=== PATIENT | female | born 1980 | race Caucasian/White ===

== ENCOUNTER 2018-12-30 08:34 | Day surgery (SDC) | payer OTHER ==
[~2018-12-30 08:34] MED LIST: BACITRACIN 50000 UNIT VIAL ONE; CEFAZOLIN SODIUM 1 GM/VIAL ONE; GENTAMICIN SULF 80 MG/2ML INJ ONE; NS 0.9% VIAL 20 ML ONE; Ringers Lactate 1,000 ML IV ONE
[2018-12-30 08:44] LABS: Urine Appearance CLEAR; Urine Bilirubin NEGATIVE (NEG); Urine Blood NEGATIVE (NEG); Urine Color YELLOW; Urine Glucose NEGATIVE (NEG); Urine Microscopic Reflex NO UMIC; Urine Protein NEGATIVE (NEG); Urine Urobilinogen 0.2 mg/dL (0.2-1.0); Urine pH 6.5 (5.0-7.0)
[2018-12-30] MEDS ORDERED: CEFAZOLIN/SWI 1gm 1 GM/10 ML SYR ONE (08:45)
[2018-12-30] MEDS ORDERED: SCOPOLAMINE HYDROBROMIDE PATCH TD ONE (08:45)
[2018-12-30] MEDS ORDERED: Ringers Lactate 1,000 ML IV ONE (08:45)
[2018-12-30] MEDS ORDERED: MIDAZOLAM HCL 2 MG/2 ML INJ ONE (08:55)
[2018-12-30] MEDS ORDERED: dexAMETHasone 10 MG/ML VIAL ONE (08:55)
[2018-12-30] MEDS ORDERED: LIDOCAINE 1% MPF 5 ML VIAL ONE (08:55)
[2018-12-30] MEDS ORDERED: PROPOFOL 200 MG/20 ML VIAL IV ONE (08:55)
[2018-12-30] MEDS ORDERED: ONDANSETRON 4 MG/2 ML VIAL ONE ×2 (08:56→13:00)
[2018-12-30] MEDS ORDERED: VECURONIUM 10 MG/VIAL IV ONE ×2 (08:56→09:04)
[2018-12-30] MEDS ORDERED: FENTANYL CITR 250 MCG/5 ML ONE ×2 (08:56→10:45)
[2018-12-30] MEDS ORDERED: NS 0.9% VIAL 10 ML ONE ×3 (08:56→11:08)
[2018-12-30] MEDS ORDERED: KETOROLAC 30 MG/ML INJ ONE ×2 (08:58→12:42)
--- NOTE | 2018-12-30 09:08 | RAD REPORT ---
EXAM DESCRIPTION: RAD - Chest Pa And Lat (2 Views) - 12/30/2018 8:37 am CLINICAL HISTORY: preop Chest pain. COMPARISON: No comparisons FINDINGS: The lungs are clear. The heart is normal in size. No displaced fractures. IMPRESSION: No acute or concerning finding suspected.
[2018-12-30] MEDS ORDERED: Mastisol Adhesive Liq ONE (10:15)
[2018-12-30] MEDS ORDERED: FENTANYL CITR 100 MCG/2 ML ONE (10:28)
[2018-12-30] MEDS ORDERED: EPHEDRINE SULF 50 MG/ML VIAL ONE (11:08)
--- NOTE | 2018-12-30 12:12 | EKG ---
Test Date: 2018-12-30 Test Time: 08:24:45 [employer] Clippings: SHANDRA MEASUREMENT RESULTS: Intervals: Rate: 61 ND: 122 QRSD: 84 QT: 410 QTc: 412 [place]: P: 32 ND: 122 QRS: 68 T: 42 INTERPRETIVE STATEMENTS: Normal sinus rhythm Normal ECG No previous ECG available for comparison Electronically Signed On 12-30-18 12:10:13 CDT by Sage Maria
[2018-12-30] MEDS ORDERED: GLYCOPYRROLATE 0.2 MG/ML SYR ONE ×2 (12:42→13:59)
[2018-12-30] MEDS ORDERED: NEOSTIGMINE 1 MG/ML -10 ML VIAL ONE (13:00)
[2018-12-30] MEDS: HYDROMORPHONE HCL 2 MG/ML inj ONE ×3 (14:30→14:50)
[2018-12-30] MEDS ORDERED: PROMETHAZINE 25 MG/ML VIAL ONE (14:35)
[2018-12-30 14:55] VITALS: O2SAT 98
[2018-12-30] MEDS ORDERED: CODEINE 30MG/APAP 300MG TAB ONE (16:12)
[2018-12-30] MEDS ORDERED: ONDANSETRON 4 MG (ODT) TAB ONE (16:12)
[2018-12-30 17:47] VITALS: BP 96/55; TEMP 98.3
--- NOTE | 2018-12-31 01:57 | OP ---
Surgeon: Subhash Ott MD Linting Machine Operator: Flaquito. Postoperative Diagnosis: Breast descend. Postoperative Diagnosis: Breast descend. Procedure Performed: Breast lift. Anesthesia: General. Description Of Procedure: After satisfactory general anesthesia, chest was prepped with DuraPrepdr hare sterile drapes applied in the usual manner. 45 template was used on right and left areolas and tra nsverse and curvilinear incisions were made. The intervening skin was de-epithelialized with dermabr ader or EpiCut. Then, flap was elevated cephalad towards the sternum, clavicle, and anterior axillar y line 1.2 cm thick. Cephalad elevation continued and then inferior incision was made. The interven ing skin was then formed into a cone with 2-0 PDS suture. After this was done, the straps were eleva macey from 12 o'clock, 1:30, and 3 o'clock positions and then straps were woven in and out the pectoral is major muscle back to the base of the cone. Pectoralis muscle was then sewn to themselves at the b ase of the cone with 2-0 PDS. This was done for the 12 o'clock and one for the 3 o'clock. Strap was sewn over the sternum at 3 o'clock position with 2-0 Ethibond. A mirror image procedure was done on the left side. The patient then had the wounds stapled shut. She was then sat up for symmetry and returned supine and then the dog ears were cut out medial and lateral with scalpel and electrocautery and then the wound was closed. A 10 KAYLYN was brought out of the axilla closed, sutured in place with 2-0 silk. Wound was closed in layers with 3-0 Vicryl subcu. 3-0 PDS running subcuticular tied in th e vertical meridian of the breast. Left side was done, and then the patient was sat up. Site for ne w nipple-areolar complex was marked out. Tissue was cored out, with a 45 mm template and interrupted 4-0 PDS, followed by 4-0 PDS in running and subcuticular. Dressings consisted of tincture of benzoi n, Steri-Strips, 5 x 5's, fluffs, and Bright wrap. Patient tolerated the procedure well. The amount re moved from the right breast was 30 g, left breast with 26 g. GH/MODL Voice ID: [id number] Report ID: [id number]
== END 2018-12-30 18:25 | disposition home or self-care (01) ==
LOC: OR 08:34
PROVIDERS: ATTEND Specialist
PROC: 0H0V0ZZ Alteration of Bilateral Breast, Open Approach (ICD-10-PCS; principal; 2018-12-30 09:00)
DX: N64.81 Ptosis of breast (principal); Z88.3 Allergy status to other anti-infective agents
CPT/HCPCS: 93005; 81025; 88305; 81003; 71046; 19316; J2704; J2710; J2550; J1580; J2250; J1170; J3010 ×3; J1100; J0690 ×2; J7120 ×2; J2405 ×2

== ENCOUNTER 2019-09-01 08:24 | Day surgery (SDC) | payer OTHER ==
[2019-09-01] MEDS ORDERED: NA CHLORIDE 0.9% 1,000 ML ONE (08:52)
[2019-09-01] MEDS ORDERED: EPINEPHRINE/PF 1 MG/ML AMP ONE ×2 (08:52→09:59)
[2019-09-01] MEDS ORDERED: NS 0.9% VIAL 0 ML ONE (08:53)
[2019-09-01] MEDS ORDERED: LIDOCAINE 1% W/EPI 1:100,000 MDV 50 ML VIAL ONE (08:53)
[2019-09-01] MEDS ORDERED: CEFAZOLIN/SWI 1gm 1 GM/10 ML SYR ONE (08:56)
[2019-09-01] MEDS ORDERED: Ringers Lactate 1,000 ML IV ONE (08:56)
[2019-09-01] MEDS: Ringers Lactate 1,000 ML IV ONE (08:58)
[2019-09-01] MEDS ORDERED: CEFAZOLIN SODIUM 1 GM/VIAL ONE (09:02)
[2019-09-01] MEDS ORDERED: GENTAMICIN SULF 80 MG/2ML INJ ONE (09:02)
[2019-09-01] MEDS ORDERED: NS 0.9% VIAL 10 ML ONE ×2 (09:02→09:03)
[2019-09-01] MEDS ORDERED: BACITRACIN 50000 UNIT VIAL ONE (09:03)
[2019-09-01] MEDS ORDERED: SCOPOLAMINE HYDROBROMIDE PATCH TD ONE (09:13)
[2019-09-01] MEDS ORDERED: MIDAZOLAM HCL 2 MG/2 ML INJ ONE (09:59)
[2019-09-01] MEDS ORDERED: LIDOCAINE 2% MPF 5 ML VIAL ONE (09:59)
[2019-09-01] MEDS ORDERED: dexAMETHasone 10 MG/ML VIAL ONE (09:59)
[2019-09-01] MEDS ORDERED: propofoL 200 MG/20 ML VIAL IV ONE (09:59)
[2019-09-01] MEDS ORDERED: ROCURONIUM 50 MG/5 ML VIAL IV ONE (09:59)
[2019-09-01] MEDS ORDERED: ONDANSETRON 4 MG/2 ML VIAL ONE ×3 (09:59→11:56)
[2019-09-01] MEDS ORDERED: FENTANYL CITR 100 MCG/2 ML ONE (09:59)
[2019-09-01] MEDS ORDERED: KETOROLAC 30 MG/ML INJ ONE (09:59)
[2019-09-01] MEDS ORDERED: FENTANYL CITR 250 MCG/5 ML ONE (10:00)
[2019-09-01] MEDS ORDERED: Mastisol Adhesive Liq ONE (10:39)
[2019-09-01] MEDS: HYDROMORPHONE HCL 1 MG/ML INJ ONE ×2 (11:30→11:40)
[2019-09-01] MEDS ORDERED: MEPERIDINE HCL 25 MG/ML SYR ONE (11:35)
[2019-09-01] MEDS ORDERED: PROMETHAZINE INJ 25 MG/ML AMP ONE (11:35)
[2019-09-01] MEDS ORDERED: HYDROMORPHONE HCL 2 MG/ML inj ONE (11:57)
[2019-09-01] MEDS ORDERED: CODEINE 30MG/APAP 300MG TAB ONE (14:07)
[2019-09-01 15:54] VITALS: TEMP 99.1; O2SAT 99
[2019-09-01 16:35] VITALS: BP 115/75
--- NOTE | 2019-09-02 05:36 | OP ---
Surgeon: Subhash Ott MD Home Care Associate: Flaquito. Preoperative Diagnoses: Hypermastia and scar, status post breast lift and lipodystrophy. Postoperative Diagnoses: Hypermastia and scar, status post breast lift and lipodystrophy. Procedure Performed: Tumescent liposuction of the abdomen and flanks with fat transfer of the breast, scar revisions of the areola. Anesthesia: General. Description Of Procedure: After satisfactory general anesthesia, the patient's chest, abdomen, and flanks were prepped with DuraPrep, dry sterile drapes applied in usual manner. A 15 blade was used to make an incision over the anterior iliac spine bilaterally and supraumbilically. Infusion cannula was used to infuse solution, 2000 mL total were infused over flanks and abdomen. Liposuction was performed 200 out of the right flank, 230 out of the left flank, 530 out of the abdomen. The fat was allowed to gravity. Attention was turned to the breast. The right areola was approached first. The patient had inclination of her nipple. This required a crescent excision on the 12 o'clock position, which redirected the nipple straightforward. This was closed with 5-0 PDS suture. Attention was then turned to between the 4 o'clock and 8 o'clock position. The crescent was excised of scar tissue and then closed with interrupted 4-0 PDS running subcuticular. Attention was turned to the left areola. The patient had the areola on the left side higher than the right. A crescent excision was taken inferiorly from the 3 o'clock to 9 o'clock position, will be around 1.5 cm to pull the areolar complex down. This was closed with 4- 0 PDS and interrupted 5-0 PDS running subcuticular. Incision made in the scar and then a 2 mm cannula was used to infuse the fat. The total amount of fat infused in the right breast was 192, left breast was 175. These wounds were closed with 4-0 PDS. Abdominal wounds were closed with 4-0 PDS in the midline. Flanks left open.The wounnd was covered with tincture of benzoin, Steri-Strips on the breast followed by Kerlix, Bright wrap. The patient tolerated the procedure well and returned to recovery. PENELOPE/TIANA Voice ID: [id number] Report ID: [id number] MTDD
== END 2019-09-01 16:50 | disposition home or self-care (01) ==
LOC: OR 08:24
PROVIDERS: ATTEND Specialist
PROC: 0HSXXZZ Reposition Left Nipple, External Approach (ICD-10-PCS; 2019-09-01)
PROC: 0HSWXZZ Reposition Right Nipple, External Approach (ICD-10-PCS; 2019-09-01)
PROC: 0H0V37Z Alteration of Bilateral Breast with Autologous Tissue Substitute, Percutaneous Approach (ICD-10-PCS; principal; 2019-09-01 09:00)
DX: N64.82 Hypoplasia of breast (principal); L90.5 Scar conditions and fibrosis of skin; L91.0 Hypertrophic scar; E88.1 Lipodystrophy, not elsewhere classified; L72.0 Epidermal cyst
CPT/HCPCS: 81025; 88302; 15771; 15772 ×7; 19350; J2704; J0171 ×2; J2550; J2250; J1170 ×2; J3010 ×2; J1100; J2175; J0690; J7120 ×2; J7030; J2405 ×3; 88305; J1580